=== PATIENT | male | born 1985 | race Caucasian/White ===

== ENCOUNTER 2020-04-14 11:46 | Day surgery (SDC) | payer BC ==
[~2020-04-14] VITALS: Ht 182.9 cm; Wt 79.3 kg
[2020-04-14] VITALS (10 sets, daily range): BP systolic 121–140; BP diastolic 58–84; PULSE 55–71; TEMP 97.9–98.4
[2020-04-14] MEDS ORDERED: CLOMID50 MG (12:50)
[2020-04-14] MEDS ORDERED: TYLENOL 325MG325 MG PO (12:51)
[2020-04-14] MEDS ORDERED: ONE-A-DAY ESSE1 EACH PO (12:51)
--- NOTE | 2020-04-14 12:59 | NUR ---
B.GERTRUDIS [employer] INTO TALK WITH PATIENT.
--- NOTE | 2020-04-14 13:00 | NUR ---
TO RM AT 1155- CALL LIGHT IN REACH
--- NOTE | 2020-04-14 13:05 | NUR ---
COVID SWAB OBTAINED AND SENT TO LAB
[2020-04-14] MEDS ORDERED: MOTRIN 600600 MG/TAB PO (17:13)
[2020-04-14] MEDS ORDERED: NORCO 325 MG-51 TAB PO (17:13)
--- NOTE | 2020-04-14 19:25 | NUR ---
PATIENT TOLERATE REGULAR DIET WITH NO C/O OF PAIN OR N/V.
--- NOTE | 2020-04-14 19:40 | NUR ---
RECEIVED CHANGE OF SHIFT REPORT FROM DAY SHIFT NURSE.
--- NOTE | 2020-04-14 19:58 | NUR ---
PATIENT ATTEMPTED TO AMB TO BATHROOM, REPORTED VOIDED SMALL AMOUNT THEN BECAME DIZZY AND NAUSEATED. PATIENT PLACED BACK IN BED, WITH C/O SUBSIDING OF NAUSEA AND DIZZINESS.
--- NOTE | 2020-04-14 20:54 | NUR ---
AMBULATED IN SILVERMAN WITH THIS NURSE, TOLERATED ACTIVITY, REPORTED FELT BETTER WITH ACTIVITY. DENIES ANY C/O OR CONCERNS AT THIS TIME.
--- NOTE | 2020-04-14 21:30 | NUR ---
IV SITE REMOVED WITH PATIENT THEN REPORTING HE WAS FEELING WARM, LAID PATIENT BACK DOWN IN BED WITH C/O OF FEELING WARM SUBSIDING. ENCOURAGED PATIENT TO DRINK MORE FLUIDS, PATIENT DID REPORT HE VOIDED WITH NO PROBLEMS.
== END 2020-04-14 22:30 | disposition home or self-care (01) ==
LOC: SDCO 11:46 → SURG 18:40 → SDCO 18:40 → SURG 22:30 → SDCO 22:30
DX: K35.80 Unspecified acute appendicitis (principal)
CPT/HCPCS: OP; J0690; J1100; J1885; J2405; J2704; J3010; J7120

== ENCOUNTER → 2020-04-14 | Outpatient (CLI) | payer BC ==
[~2020-04-14] MED LIST: CLOMID50 MG; MOTRIN 600600 MG/TAB PO; NORCO 325 MG-51 TAB PO; ONE-A-DAY ESSE1 EACH PO; TYLENOL 325MG325 MG PO
== END ==
LOC: COL.RAD 10:05
DX: K35.80 Unspecified acute appendicitis (principal)
CPT/HCPCS: Q9967